=== PATIENT | male | born 1995 | race Caucasian/White ===

== ENCOUNTER 2018-01-01 12:56 | Emergency (ER) | payer SELFPAY ==
[~2018-01-01] VITALS: Ht 167.6 cm; Wt 73.5 kg
[2018-01-01 13:03] VITALS: BP 126/67; Ht 167.6 cm; Wt 73.5 kg
== END 2018-01-01 14:50 | disposition left against medical advice (07) ==
LOC: ED 12:56
DX: Z53.21 Procedure and treatment not carried out due to patient leaving prior to being seen by health care provider (principal)